=== PATIENT | male | born 1955 | race Caucasian/White ===

== ENCOUNTER → 2024-05-19 | Outpatient (CLI) | payer MEDICARE, SELFPAY ==
--- NOTE | 2024-05-19 15:02 | XR_ITS ---
Examination: Right knee 4 views Technique: AP oblique lateral axial right knee 4 views Exam date and time: 2024 1528 hrs. Indications: Left knee pain beginning 2 months ago. Findings: Mild to moderate osteoarthritis medial patellofemoral joints Moderate knee effusion No fracture Impression: Mild to moderate osteoarthritis medial patellofemoral joints
--- NOTE | 2024-05-19 15:02 | XR_ITS ---
Examination:Right hip AP, lateral, AP pelvis 3 views Technique: Hip AP lateral, AP pelvis, 3 views Exam date and time:May 19, 2024 1520 hrs. Indications: Left hip pain beginning 2 months ago. Findings: Moderate to advanced left hip osteoarthritis Moderate right hip osteoarthritis No hip or pelvic fracture Impression: Moderate to advanced left hip osteoarthritis.
== END | disposition home or self-care (01) ==
LOC: CDIM 14:33
PROVIDERS: PCP Family Medicine; Referring Provider Internal Medicine; Visit Provider Internal Medicine
DX: M16.12 Unilateral primary osteoarthritis, left hip (principal); M17.11 Unilateral primary osteoarthritis, right knee
CPT/HCPCS: 73502; 73564